=== PATIENT | male | born 2000 | race Caucasian/White ===

== ENCOUNTER 2018-10-26 08:35 | Emergency (ER) | payer MEDICAID ==
[~2018-10-26] VITALS: Ht 172.7 cm; Wt 68.2 kg
[2018-10-26 08:53] VITALS: Ht 172.7 cm; Wt 68.2 kg
[2018-10-26 09:27] LABS: BASOPHILS 0.3 % (0-2); EOSINOPHILS 2.5 % (0-7); HEMATOCRIT 49.7 % (42.0-54.0); HEMOGLOBIN 17.1 g/dL (13.5-17.5); IMMATURE GRANULOCYTES 0.6 % (0-5); LYMPHOCYTES 14.5 % (15-50); MCH 30.8 pg (26.0-34.0); MCHC 34.4 g/dL (31.0-37.0); MCV 89.4 fL (80.0-100.0); MEAN PLATELET VOLUME 10.5 fL (7.4-10.4); NEUTROPHILS 69.1 % (40-80); PLATELET COUNT 233 10x3/uL (130-400); RBC 5.56 10x6/uL (4.20-6.10); RDW 12.9 % (11.5-14.5); WBC 10.1 10x3/uL (4.8-10.8)
[2018-10-26 09:28] LABS: APPEARANCE CLEAR (CLEAR); BILIRUBIN NEGATIVE (NEGATIVE); COLOR YELLOW (YELLOW); GLUCOSE NEGATIVE (NEGATIVE); KETONE NEGATIVE (NEGATIVE); NITRITE NEGATIVE (NEGATIVE); PROTEIN NEGATIVE (NEGATIVE); SPECIFIC GRAVITY 1.015 (1.005-1.020); UROBILINOGEN NORMAL (NORMAL)
[2018-10-26 09:42] LABS: ALKALINE PHOSPHATASE 70 U/L (46-116); ALT (SGPT) 24 U/L (10-68); BILIRUBIN - TOTAL 0.47 mg/dL (0.2-1.3); CALC OSMOLALITY 279 mosm/kg (275-300); CARBON DIOXIDE 27.6 mmol/L (21.0-32.0); CHLORIDE - SERUM 106 mmol/L (98-107); CREATININE - SERUM 0.9 mg/dL (0.6-1.3); GLUCOSE 68 mg/dL (74-106); POTASSIUM - SERUM 4.7 mmol/L (3.5-5.1); PROTEIN - SERUM 7.2 g/dL (6.4-8.2); SODIUM 142 mmol/L (136-145); UREA NITROGEN 9 mg/dL (7-18); eGFR NON AFRICAN AMERICAN > 90 mL/min (90-120)
[2018-10-26 11:38] VITALS: BP 122/63
== END 2018-10-26 11:38 | disposition home or self-care (01) ==
LOC: D.ER 08:35
PROVIDERS: Family Medicine
DX: N20.0 Calculus of kidney (principal); R10.9 Unspecified abdominal pain; F17.200 Nicotine dependence, unspecified, uncomplicated